=== PATIENT | male | born 1995 | race Caucasian/White ===

== ENCOUNTER 2020-12-28 20:11 | Emergency (ER) | payer OTHER ==
[~2020-12-28 20:11] MED LIST: FLEXERIL 10 MG10 MG PO; IBUPROFEN600 MG PO; LODINE CAP 300300 MG PO; ZOFRAN4 MG PO
[2020-12-28 20:58] LABS: HEMOGLOBIN 15.2 gm/dl (14.0-17.5); RED BLOOD COUNT 5.28 M/UL (4.20-5.50)
[2020-12-28 21:14] LABS: BUN/CREATININE RATIO 13 (0-10)
[2020-12-28] MEDS ORDERED: CARAFATE 1 GM TA1 GM PO (21:45)
[2020-12-28] MEDS ORDERED: OMEPRAZOLE MAGN20 M1 PO (21:45)
== END 2020-12-28 22:00 | disposition home or self-care (01) ==
LOC: ER1 20:11
PROVIDERS: Physician Assistant
DX: R07.2 Precordial pain (principal); R10.13 Epigastric pain; Z88.0 Allergy status to penicillin; F17.220 Nicotine dependence, chewing tobacco, uncomplicated
CPT/HCPCS: 71045; 80053; 82550; 82553; 83690; 83874; 84484; 85025; 85379; 93005; 96374; 99285; J1885

== ENCOUNTER 2021-03-26 21:29 | Emergency (ER) | payer OTHER ==
[~2021-03-26 21:29] MED LIST changes: +CARAFATE 1 GM TA1 GM PO; +OMEPRAZOLE MAGN20 M1 PO
[2021-03-26 22:35] LABS: HEMOGLOBIN 15.2 gm/dl (14.0-17.5); RED BLOOD COUNT 5.23 M/UL (4.20-5.50); WHITE BLOOD COUNT 7.7 K/UL (4.5-11.0)
[2021-03-26 22:58] LABS: BUN/CREATININE RATIO 17 (0-10)
[2021-03-27] MEDS ORDERED: PROTONIX40 MG PO (02:05)
== END 2021-03-27 02:17 | disposition home or self-care (01) ==
LOC: ER1 21:29
PROVIDERS: Physician Assistant
DX: R10.13 Epigastric pain (principal); R11.2 Nausea with vomiting, unspecified; Z88.0 Allergy status to penicillin
CPT/HCPCS: 80053; 81001; 83690; 85025; 87086; 99284